=== PATIENT | female | born 1985 | race Caucasian/White ===

== ENCOUNTER 2019-04-10 15:09 | Emergency (ER) | payer OTHER ==
[~2019-04-10] VITALS: Ht 165.1 cm; Wt 68.0 kg
== END 2019-04-10 21:06 | disposition home or self-care (01) ==
LOC: ER 15:09
DX: B34.9 Viral infection, unspecified (principal); B96.0 Mycoplasma pneumoniae [M. pneumoniae] as the cause of diseases classified elsewhere

== ENCOUNTER 2024-08-09 19:22 | Emergency (ER) | payer OTHER ==
[~2024-08-09] VITALS: Ht 165.1 cm; Wt 72.6 kg
[2024-08-09] MEDS ORDERED: ORPHENADRINE CITRATE 30 MG/ML AMPUL IM ONE (20:30)
[2024-08-09] MEDS ORDERED: KETOROLAC TROMETHAMINE 60 MG VIAL IM ONE ×2 (20:30→20:34)
[2024-08-09] MEDS ORDERED: ORPHENADRINE CITRATE 30 MG/ML AMPUL ONE (20:34)
[2024-08-09 21:08] LABS: BASO % 0.2 % (0.1-1.2); HEMATOCRIT 31.3 % (34.1-44.9); LYMPH # 0.24 (1.18-3.74); LYMPH % 1.9 % (19.3-53.1); MEAN CORPUSCULAR HEMOGLOBIN 29.8 pg (25.6-32.2); MONO # 0.81 (0.24-0.82); MONO % 6.5 % (4.7-12.5); NEUT # 11.24 (1.56-6.13); PLATELET COUNT 259 K/uL (163-369); RED BLOOD COUNT 3.69 M/uL (3.93-5.22); RED CELL DISTRIBUTION WIDTH 12.7 % (11.6-14.4)
[2024-08-09 21:09] LABS: URINE APPEARANCE Clear; URINE BILIRRUBIN Negative (NEGATIVE); URINE BLOOD Negative; URINE COLOR Yellow; URINE GLUCOSE Negative (NEGATIVE); URINE KETONE 15 (NEGATIVE); URINE LEUKOCYTE Moderate; URINE NITRATE Negative; URINE PROTEIN Negative (NEGATIVE); URINE UROBILINOGEN 0.2 E.U./dl
[2024-08-09 21:12] LABS: URINE BACTERIA 121.1 uL (0.0-1933); URINE EPITHELIAL CELLS 11.8 uL (0.0-38.8); URINE WBC 34.4 uL (0.0-23.2)
[2024-08-09 21:29] LABS: ALKALINE PHOSPHATASE 30 U/L (50-136); ALT/SGPT 12 U/L (12-78); ANION GAP 13 (10.0-20.0); AST/SGOT 7 U/L (15-37); BILIRUBIN TOTAL 0.43 mg/dL (0.3-1.2); BLOOD UREA NITROGEN 8 mg/dL (7-18); BUN CREA RATIO 13 (7.0-25.0); CALCIUM 9.2 mg/dL (8.5-10.1); CARBON DIOXIDE 25 mEq/L (21-32); CHLORIDE 105 mmol/L (98-107); CREATININE SERUM 0.62 mg/dL (0.55-1.02); GFR 107.73; GLOBULINA 3.2 G/DL (2.4-3.5); GLUCOSE FASTING 115 mg/dL (65-100); OSMOLALITY SERUM 277 MOSM/KG (275-295); POTASSIUM 3.93 mEq/L (3.5-5.1); SODIUM 139 mmol/L (136-145); TOTAL PROTEIN 7.2 gm/dL (6.4-8.2)
[2024-08-09 21:30] LABS: HCG QUANTITATIVE < 1 mUI/mL (1-3)
[2024-08-09 21:52] LABS: URINE CAST 0.29 uL (0.0-1.40); URINE RBC 0.5 uL (0.0-20.8)
[2024-08-09] MEDS ORDERED: CEFTRIAXONE SODIUM 1,000 MG VIAL ONE (23:06)
[2024-08-09] MEDS ORDERED: CEFTRIAXONE SODIUM 1,000 MG VIAL IM ONE (23:15)
[2024-08-09] MEDS ORDERED: BACTRIM DS TAB1 EACH PO (23:55)
[2024-08-09] MEDS ORDERED: PEPCID AC20 MG PO (23:55)
== END 2024-08-09 23:58 | disposition home or self-care (01) ==
LOC: ER 19:22
PROVIDERS: General Practice
DX: N39.0 Urinary tract infection, site not specified (principal); M54.50 Low back pain, unspecified